=== PATIENT | male | born 1945 | race Caucasian/White ===

== ENCOUNTER 2020-05-10 11:25 | Inpatient (IN) ==
[2020-05-10] MEDS ORDERED: Isovue-370 500 ML BOTTLE IVP ONE (11:45)
[2020-05-10 12:11] LABS: Basophils % 0.2 %; Eosinophils % 0.2 %; Hematocrit 38.8 % (37.5-50.1); Hemoglobin 12.8 g/dL (12.9-16.9); Immature Granulocytes % 0.5 % (0-4); Lymphocytes # 0.6 K/mcL (0.6-4.6); Lymphocytes % 5.4 %; Mean Corpuscular Hemoglobin 31.9 pg (28.0-33.3); Mean Corpuscular Volume 96.8 fL (83.0-100.0); Mean Platelet Volume 9.4 fL (9.4-12.4); Monocytes # 0.8 K/mcL (0.0-1.3); Monocytes % 6.5 %; Neutrophils # 10.2 K/mcL (1.6-8.9); Platelet Count 534 K/mcL (140-400); Red Blood Count 4.01 M/mcL (4.19-5.50); Segmented Neutrophils % 87.2 %; White Blood Count 11.7 K/mcL (4.3-11.1)
[2020-05-10 12:31] LABS: BUN/Creatinine Ratio 11 (6-26); Blood Urea Nitrogen 10 mg/dL (8-23); Calcium 9.3 mg/dL (8.6-10.3); Carbon Dioxide 22 mEq/L (23-29); Chloride 101 mEq/L (98-107); Glucose 126 mg/dL (70-105); Osmolality,Calculated 279 (280-300); Potassium 4.4 mEq/L (3.5-5.1); Sodium 134 mEq/L (136-145); Troponin I < 0.03 ng/mL (< 0.04); eGFR For African Americans > 60 (> 60); eGFR For Non-African Americans > 60 (> 60)
[2020-05-10] MEDS ORDERED: Naloxone 0.4 MG/ML INJ IVP PRN (15:30)
[2020-05-10] MEDS ORDERED: Perflutren Lipid Microsphere 1.3 ML in 0.9 % Sodium Chloride 8.7 ML IVP PRN ×2 (15:33→21:25)
[2020-05-10] MEDS ORDERED: Ketorolac 30 MG/ML VIAL IVP ONE (17:44)
[2020-05-10] MEDS ORDERED: Acetaminophen 325 MG TABLET PO ONE (17:44)
[2020-05-10] MEDS: Aspirin 81 MG TAB.CHEW PO SCH (17:45)
[2020-05-10] MEDS ORDERED: Ketorolac 30 MG/ML VIAL IVP PRN (17:51)
[2020-05-10] MEDS ORDERED: 0.9 % Sodium Chloride 250 ML IVC ONE (17:52)
[2020-05-10] MEDS ORDERED: *HR* Heparin 5,000 UNIT/ML VIAL SQ SCH (19:00)
[2020-05-10] MEDS ORDERED: *HR* Heparin 5,000 UNIT/ML VIAL IVP ONE (21:25)
[2020-05-10] MEDS ORDERED: *HR* Heparin 5,000 UNIT/ML VIAL IVP PRN (21:25)
[2020-05-10] MEDS: Acetaminophen 325 MG TABLET PO PRN (21:28)
[2020-05-10] MEDS: Heparin 25,000UNIT/250ML 1/2NS 25,000 UNIT/250 ML IV.SOLN IVC SCH (22:44)
[2020-05-11 06:04] LABS: Heparin anti-factor XA UFH 0.1 IU/mL (0.30-0.70); INR 1.1; Prothrombin Time 12.9 Seconds (9.4-12.1)
[2020-05-11 06:17] LABS: Basophils % 0.1 %; Eosinophils % 0.1 %; Hematocrit 38.1 % (37.5-50.1); Hemoglobin 12.6 g/dL (12.9-16.9); Immature Granulocytes % 0.6 % (0-4); Lymphocytes # 1.1 K/mcL (0.6-4.6); Lymphocytes % 10.7 %; Mean Corpuscular HGB Conc 33.1 g/dL (31.6-35.5); Mean Corpuscular Hemoglobin 32.6 pg (28.0-33.3); Mean Corpuscular Volume 98.4 fL (83.0-100.0); Mean Platelet Volume 10.2 fL (9.4-12.4); Monocytes # 0.7 K/mcL (0.0-1.3); Monocytes % 6.7 %; Platelet Count 427 K/mcL (140-400); Red Blood Count 3.87 M/mcL (4.19-5.50); Red Cell Distribution Width 13.8 % (11.5-14.5); Segmented Neutrophils % 81.8 %; White Blood Count 9.8 K/mcL (4.3-11.1)
[2020-05-11 06:41] LABS: BUN/Creatinine Ratio 17 (6-26); Blood Urea Nitrogen 13 mg/dL (8-23); Calcium 9.3 mg/dL (8.6-10.3); Carbon Dioxide 23 mEq/L (23-29); Chloride 105 mEq/L (98-107); Glucose 121 mg/dL (70-105); Magnesium 2.5 mg/dL (1.6-2.6); Osmolality,Calculated 285 (280-300); Phosphorous 2.9 mg/dL (2.7-4.5); Potassium 4.1 mEq/L (3.5-5.1); Sodium 137 mEq/L (136-145); eGFR For African Americans > 60 (> 60); eGFR For Non-African Americans > 60 (> 60)
[2020-05-11] MEDS: Aspirin 81 MG TAB.CHEW PO SCH (07:48)
[2020-05-11] MEDS: lisinopriL 5 MG TABLET PO SCH (09:23)
[2020-05-11 12:28] LABS: Adenovirus Not Detected (Not Detect); Bordetella Pertussis Not Detected (Not Detect); Chlamydophila pneumoniae Not Detected (Not Detect); Coronavirus 229E Not Detected (Not Detect); Coronavirus HKU1 Not Detected (Not Detect); Coronavirus NL63 Not Detected (Not Detect); Coronavirus OC43 Not Detected (Not Detect); Human Metapneumovirus Not Detected (Not Detect); Human Rhinovirus/Enterovirus Not Detected (Not Detect); Influenza A Subtype 2009 H1 Not Detected (Not Detect); Influenza B Not Detected (Not Detect); Mycoplasma pneumoniae Not Detected (Not Detect); Parainfluenza Virus 1 Not Detected (Not Detect); Parainfluenza Virus 2 Not Detected (Not Detect); Parainfluenza Virus 3 Not Detected (Not Detect); Parainfluenza Virus 4 Not Detected (Not Detect); Respiratory Syncytial Virus Not Detected (Not Detect); SARS-CoV-2 Not Detected (Not Detect)
[2020-05-11] MEDS: Heparin 25,000UNIT/250ML 1/2NS 25,000 UNIT/250 ML IV.SOLN IVC SCH (16:03)
[2020-05-11] MEDS: *HR* Heparin 5,000 UNIT/ML VIAL IVP PRN (18:10)
[2020-05-11] MEDS: Acetaminophen 325 MG TABLET PO PRN (19:31)
[2020-05-12 00:23] LABS: Hematocrit 37.2 % (37.5-50.1); Mean Corpuscular HGB Conc 32.3 g/dL (31.6-35.5); Mean Corpuscular Hemoglobin 31.3 pg (28.0-33.3); Mean Corpuscular Volume 97.1 fL (83.0-100.0); Mean Platelet Volume 9.3 fL (9.4-12.4); Platelet Count 501 K/mcL (140-400); Red Blood Count 3.83 M/mcL (4.19-5.50); Red Cell Distribution Width 13.8 % (11.5-14.5)
[2020-05-12 02:20] LABS: BUN/Creatinine Ratio 22 (6-26); Blood Urea Nitrogen 17 mg/dL (8-23); Calcium 8.4 mg/dL (8.6-10.3); Carbon Dioxide 22 mEq/L (23-29); Chloride 107 mEq/L (98-107); Glucose 123 mg/dL (70-105); Magnesium 2.3 mg/dL (1.6-2.6); Osmolality,Calculated 289 (280-300); Sodium 138 mEq/L (136-145); eGFR For African Americans > 60 (> 60); eGFR For Non-African Americans > 60 (> 60)
[2020-05-12] MEDS: Heparin 25,000UNIT/250ML 1/2NS 25,000 UNIT/250 ML IV.SOLN IVC SCH (06:20)
[2020-05-12] MEDS ORDERED: Isovue-370 500 ML BOTTLE IVP ONE (07:25)
[2020-05-12 07:27] VITALS: BP 117/72
[2020-05-12] MEDS ORDERED: Dexamethasone Sodium Phos/PF 10 MG/ML VIAL IVP SCH (09:00)
[2020-05-12] MEDS: lisinopriL 5 MG TABLET PO SCH (09:52)
[2020-05-12] MEDS: Aspirin 81 MG TAB.CHEW PO SCH (09:52)
[2020-05-12] MEDS: *HR* Heparin 5,000 UNIT/ML VIAL IVP PRN (09:55)
[2020-05-12] MEDS ORDERED: *HR* Warfarin 5 MG TABLET PO ONE (16:00)
== END 2020-05-12 17:40 | disposition home or self-care (01) ==
LOC: EMEROOARM 11:25 → 2NENU 11:25 → SUATTDRO 17:15 → 2NENU 18:00
PROVIDERS: ADMIT Student in an Organized Health Care Education/Training Program; ATTEND Internal Medicine